=== PATIENT | male | born 1950 | race Hispanic/Latino ===

== ENCOUNTER → 2024-02-21 | Outpatient (CLI) | payer OTHER ==
[2024-02-21] VITALS (10 sets, daily range): PULSE 51–59; RESP 4–17
[2024-02-22] VITALS (12 sets, daily range): PULSE 47–56; RESP 3–22
== END | disposition home or self-care (01) ==
LOC: SLP 20:28
PROVIDERS: ATTEND Family Medicine
DX: G47.33 Obstructive sleep apnea (adult) (pediatric) (principal)
CPT/HCPCS: 95811